=== PATIENT | female | born 1970 | race African-American/Black ===

== ENCOUNTER 2020-04-17 13:23 | Emergency (ER) | payer SELFPAY ==
[2020-04-17] MEDS ORDERED: AMOXICILLIN500 MG PO (15:06)
[2020-04-17 15:13] VITALS: BP 173/86
== END 2020-04-17 15:22 | disposition home or self-care (01) | DRG 607 ==
LOC: ED 13:23
DX: L98.9 Disorder of the skin and subcutaneous tissue, unspecified (principal); D57.1 Sickle-cell disease without crisis